=== PATIENT | male | born 1980 | race Hispanic/Latino ===

== ENCOUNTER 2021-12-24 13:05 | Observation (INO) | payer OTHER ==
[~2021-12-24] VITALS: Ht 177.8 cm; Wt 94.8 kg
[2021-12-24] MEDS ORDERED: ASPIRIN 81 MG CHEW TAB PO ONE (14:00)
[2021-12-24] MEDS ORDERED: ASPIRIN 325 MG TAB PO ONE (14:00)
[2021-12-24] MEDS ORDERED: ASPIRIN 325 MG TAB ONE (14:05)
[2021-12-24 17:16] VITALS: BP 135/84
[2021-12-24 18:14] VITALS: BP 135/84
[2021-12-24 19:29] LABS: CREATINE KINASE 239 IU/L (30-200)
[2021-12-24 20:00] VITALS: BP 128/92
[2021-12-24] MEDS ORDERED: MAGNESIUM HYDROXIDE 30 ML UDC PO PRN (21:30)
[2021-12-24] MEDS ORDERED: Morphine 2mg Syringe 2 MG/ML SYR IV PRN (21:30)
[2021-12-24] MEDS ORDERED: ONDANSETRON HCL INJ 2MG/ML 2ML 2 MG/ML VIAL IV PRN (21:30)
[2021-12-24] MEDS ORDERED: HYDRALAZINE HCL 20 MG/ML VIAL IV PRN (21:30)
[2021-12-24] MEDS ORDERED: ACETAMINOPHEN 325 MG TAB PO PRN (21:30)
[2021-12-24] MEDS ORDERED: MELATONIN 3 MG TAB PO PRN (21:30)
[2021-12-24 22:35] LABS: CHOL/HDL RATIO 5.9 (3.9-4.7)
[2021-12-24 22:38] LABS: CREATINE KINASE 241 IU/L (30-200)
[2021-12-25] VITALS: BP 127/79
[2021-12-25] MEDS ORDERED: IOPAMIDOL 370 MG/ML 100 ML INFUS..BTL INJ ONE (00:52)
[2021-12-25 04:00] VITALS: BP 129/92
[2021-12-25 05:16] LABS: BASOPHILS # (AUTO) 0.1 (0.0-0.1); BASOPHILS % 0.9 % (0.0-1.0); EOSINOPHILS # (AUTO) 0.2 (0.0-0.4); EOSINOPHILS % 2.1 % (0.0-6.0); HEMATOCRIT 48.4 % (38.2-49.6); HEMOGLOBIN 15.6 g/dL (14.0-18.0); LYMPHOCYTES # (AUTO) 2.9 (1.0-3.2); LYMPHOCYTES % 36.2 % (18.0-39.1); MEAN CORPUSCULAR HEMOGLOBIN 27.4 pg (28-32); MEAN CORPUSCULAR HGB CONC 32.2 g/dL (31-35); MEAN CORPUSCULAR VOLUME 84.9 fL (81-99); MONOCYTES # (AUTO) 0.5 (0.2-0.8); MONOCYTES % 6.1 % (4.4-11.3); NEUTROPHILS # (AUTO) 4.4 (2.1-6.9); NEUTROPHILS % 54.2 % (38.7-80.0); PLATELET COUNT 338 x10e3/uL (140-360); RED CELL DISTRIBUTION WIDTH 14.1 % (11.7-14.4)
[2021-12-25 05:49] LABS: ANION GAP 14.3 mmol/L (8-16); CALCIUM 8.8 mg/dL (8.4-10.2); CREATININE, SERUM 1.02 mg/dL (0.72-1.25); POTASSIUM 4.3 mmol/L (3.5-5.1)
[2021-12-25 06:08] LABS: CREATINE KINASE 212 IU/L (30-200)
[2021-12-25] MEDS ORDERED: FAMOTIDINE 20 MG TAB PO SCH (07:30)
[2021-12-25 08:05] VITALS: BP 133/76
[2021-12-25] MEDS ORDERED: ASPIRIN 325 MG TAB PO SCH (09:00)
[2021-12-25] MEDS ORDERED: ENOXAPARIN SOD INJ 40 MG/0.4 ML SYR SC SCH (17:00)
== END 2021-12-25 08:52 | disposition home or self-care (01) ==
LOC: FSED 13:35 → ERHOLD 13:58 → MED/SURG 17:16
PROVIDERS: ADMIT Internal Medicine; ATTEND Internal Medicine
DX: M62.82 Rhabdomyolysis (principal); Z20.822 Contact with and (suspected) exposure to COVID-19; K21.9 Gastro-esophageal reflux disease without esophagitis
CPT/HCPCS: 36415 ×2; 71045; 71260; 80048; 80053; 80061; 82550 ×2; 82553 ×2; 84484 ×2; 85025; 85379; 93005; 94799; 99283; G0378 ×2; Q9967; U0002